=== PATIENT | female | born 1965 | race Caucasian/White ===

== ENCOUNTER → 2024-09-26 07:02 | Outpatient (REF) | payer BC, SELFPAY | LOC: RCS 07:02 | PROVIDERS: ATTENDING PHYSICIAN Internal Medicine Cardiovascular Disease; FAMILY PHYSICIAN Family Medicine | DX: R07.2 Precordial pain (principal) | CPT/HCPCS: 93306 ==

== ENCOUNTER → 2024-09-27 13:15 | Outpatient (REF) | payer BC, SELFPAY | LOC: RCS 13:15 | PROVIDERS: ATTENDING PHYSICIAN Internal Medicine Cardiovascular Disease; FAMILY PHYSICIAN Family Medicine | DX: R07.2 Precordial pain (principal) | CPT/HCPCS: 93017; 93350 ==